=== PATIENT | female | born 1975 | race Caucasian/White ===

== ENCOUNTER 2020-11-03 08:53 | Outpatient (REF) | payer OTHER, SELFPAY ==
--- NOTE | ~2020-11-03 | MM_ITS ---
EXAMINATION: MM SCREENING DIGITAL BREAST TOMOSYNTHESIS, BILATERAL CLINICAL INFORMATION: Screening. Asymptomatic. The lifetime risk of breast cancer based on the Tyrer-Cuzick Model is 11%. COMPARISON: Mammography: 12/11/2018, 08/27/2016, 01/03/2015 TECHNIQUE: Digital breast tomosynthesis is performed in both the craniocaudal and mediolateral oblique views along with computer-aided detection (CAD). Synthesized 2D images are generated from the tomosynthesis. FINDINGS: There are scattered areas of fibroglandular density (ACR BI-RADS breast composition Category b). There are no significant masses, abnormal calcifications, or other abnormalities. Parenchymal pattern is similar to prior exams. No significant changes. MM/MM tomosynthesis screening BI IMPRESSION: No mammographic evidence of malignancy. ASSESSMENT: BI-RADS 1: Negative RECOMMENDATION: Routine annual mammography screening. This patient's information was entered into a reminder system with a target due date for their next mammogram.
== END 2020-11-03 08:54 | disposition home or self-care (01) ==
LOC: HO.MAMMO 08:53
PROVIDERS: PCP Internal Medicine; Visit Provider Internal Medicine
DX: Z12.31 Encounter for screening mammogram for malignant neoplasm of breast (principal)
CPT/HCPCS: 77063; 77067

== ENCOUNTER 2020-12-19 09:05 | Outpatient (REF) | payer OTHER, SELFPAY ==
--- NOTE | ~2020-12-19 | XR_ITS ---
EXAMINATION: BILATERAL KNEE X-RAY CLINICAL INFORMATION: Pain COMPARISON: None TECHNIQUE: 4 views of each knee FINDINGS: Right: Bone alignment is normal. No fracture or dislocation is seen. The joint spaces are normal. There is a small osteophyte at the quadriceps tendon insertion to the patella. There is a small joint effusion. Left: Bone alignment is normal. No fracture or dislocation is seen. Joint spaces are normal. There is no joint effusion. XR/XR knee RT 4V IMPRESSION: Right knee: Small osteophyte at the quadriceps tendon insertion to the patella and small joint effusion. Left knee: Unremarkable exam.
--- NOTE | ~2020-12-19 | XR_ITS ---
EXAMINATION: BILATERAL KNEE X-RAY CLINICAL INFORMATION: Pain COMPARISON: None TECHNIQUE: 4 views of each knee FINDINGS: Right: Bone alignment is normal. No fracture or dislocation is seen. The joint spaces are normal. There is a small osteophyte at the quadriceps tendon insertion to the patella. There is a small joint effusion. Left: Bone alignment is normal. No fracture or dislocation is seen. Joint spaces are normal. There is no joint effusion. XR/XR knee LT 4V IMPRESSION: Right knee: Small osteophyte at the quadriceps tendon insertion to the patella and small joint effusion. Left knee: Unremarkable exam.
== END 2020-12-19 09:06 | disposition home or self-care (01) ==
LOC: HO.XRAY 09:05
PROVIDERS: PCP Internal Medicine; Visit Provider Internal Medicine
DX: M25.561 Pain in right knee (principal); M25.562 Pain in left knee
CPT/HCPCS: 73564

== ENCOUNTER → 2021-03-15 08:50 | Outpatient (BNVA) | payer OTHER, SELFPAY | PROVIDERS: PCP Internal Medicine; Visit Provider Nurse Practitioner Family | DX: M79.7 Fibromyalgia (principal); M54.50 Low back pain, unspecified | CPT/HCPCS: 99212 ==

== ENCOUNTER 2021-03-16 08:10 | Outpatient (REF) | payer OTHER, SELFPAY ==
--- NOTE | ~2021-03-16 | XR_ITS ---
EXAMINATION: XR LUMBOSACRAL SPINE CLINICAL INFORMATION: Low back pain COMPARISON: None TECHNIQUE: Three views of the lumbosacral spine. FINDINGS: The vertebral bodies and posterior elements are normal. The disc spaces are preserved and the vertebral alignment is normal. The paraspinal soft tissues are normal. There are surgical clips in the right upper quadrant likely from previous cholecystectomy. XR/XR lumbar spine 2-3V IMPRESSION: Unremarkable examination.
[2021-03-16 09:04] LABS: Alanine Aminotransferase 28 U/L (0-31); Albumin Level 4.1 g/dL (3.5-5.0); Alkaline Phosphatase 45 U/L (39-117); Anion Gap 12 (12-20); Aspartate Amino Transferase 18 U/L (5-31); Bilirubin Total 0.3 mg/dL (0.0-1.0); Blood Urea Nitrogen 14 mg/dL (9-16); Calcium 10.1 mg/dL (8.4-10.2); Carbon Dioxide 27 mmol/L (22-29); Chloride 105 mmol/L (96-108); Estimated Glomerular Filt Rate > 60; Glucose Random 93 mg/dL (60-115); Potassium 4.8 mmol/L (3.3-5.1); Sodium 139 mmol/L (135-145)
== END 2021-03-16 08:11 | disposition home or self-care (01) ==
LOC: HO.XRAY 08:10
PROVIDERS: PCP Internal Medicine; Visit Provider Nurse Practitioner Family
DX: M79.7 Fibromyalgia (principal); M54.50 Low back pain, unspecified
CPT/HCPCS: 36415; 72100; 80053

== ENCOUNTER 2021-05-09 13:29 | Outpatient (REF) | payer OTHER, SELFPAY ==
[2021-05-12 18:17] LABS: HPV mRNA E6/E7 rflx Not Detected (Not Detected)
== END 2021-05-09 13:30 | disposition home or self-care (01) ==
LOC: HO.LAB 13:29
PROVIDERS: PCP Internal Medicine; Visit Provider Obstetrics & Gynecology
DX: Z01.411 Encounter for gynecological examination (general) (routine) with abnormal findings (principal); Z11.51 Encounter for screening for human papillomavirus (HPV); R32 Unspecified urinary incontinence
CPT/HCPCS: 87624; 88142

== ENCOUNTER → 2021-05-11 10:46 | Outpatient (BNVA) | payer OTHER, SELFPAY | PROVIDERS: PCP Internal Medicine; Visit Provider Physician Assistant | DX: M17.12 Unilateral primary osteoarthritis, left knee (principal); M25.561 Pain in right knee | CPT/HCPCS: 99202; J1040 ==

== ENCOUNTER → 2021-07-18 09:16 | Outpatient (BNVA) | payer OTHER, SELFPAY | PROVIDERS: PCP Internal Medicine | DX: R32 Unspecified urinary incontinence (principal) | CPT/HCPCS: 51798; 99202 ==

== ENCOUNTER 2021-07-21 08:36 | Outpatient (REF) | payer OTHER, SELFPAY ==
--- NOTE | ~2021-07-21 | MM_ITS ---
EXAMINATION: MM DIAGNOSTIC DIGITAL BREAST TOMOSYNTHESIS, LEFT US DIAGNOSTIC ULTRASOUND BREAST, LEFT CLINICAL INFORMATION: Left breast tenderness and pain for 2 weeks. No palpable mass or discharge. No pain today. TC score 10%. COMPARISON: Mammography: 11/03/2020, 12/11/2018, 08/27/2016 TECHNIQUE: Digital breast tomosynthesis is performed in both the craniocaudal and mediolateral oblique views along with computer-aided detection (CAD). Synthesized 2D images are generated from the tomosynthesis. Ultrasound left breast is targeted to the area of recent pain and tenderness upper outer breast. Grayscale imaging and color Doppler are performed without and with harmonics. FINDINGS: There are scattered areas of fibroglandular density (ACR BI-RADS breast composition Category b). There are no significant masses, abnormal calcifications, or other abnormalities. Parenchymal pattern is similar to prior studies. No developing density. No skin thickening or coarsening of the Monty's ligaments. No significant changes. Ultrasound demonstrates no cystic or solid mass, architectural abnormality, or focal duct ectasia. No skin thickening or edema tracking in soft tissue planes. Results are discussed with the patient at time of visit. MM/MM tomosynthesis diagnostic LT IMPRESSION: -No mammographic evidence of malignancy or inflammatory changes -Unremarkable left breast ultrasound. ASSESSMENT: BI-RADS 1: Negative RECOMMENDATION: 1. Patient should be managed based on the clinical impression. 2. Otherwise, routine annual screening mammography. This patient's information was entered into a reminder system with a target due date for their next mammogram.
== END 2021-07-21 08:37 | disposition home or self-care (01) ==
LOC: HO.MAMMO 08:36
PROVIDERS: Visit Provider Registered Nurse Community Health
DX: N64.4 Mastodynia (principal)
CPT/HCPCS: 76642; 77061; 77065

== ENCOUNTER → 2021-08-25 08:35 | Outpatient (BNVA) | payer OTHER, SELFPAY | PROVIDERS: PCP Internal Medicine | DX: R32 Unspecified urinary incontinence (principal) | CPT/HCPCS: Q3014 ==

== ENCOUNTER 2021-09-21 05:59 | Outpatient (REF) | payer OTHER, SELFPAY ==
--- NOTE | ~2021-09-21 | XR_ITS ---
EXAMINATION: XR KNEE AP STANDING CLINICAL INFORMATION: Pain in the right knee. COMPARISON: 12/19/2020. TECHNIQUE: AP bilateral standing view of the knees was obtained. FINDINGS: No evidence of acute fractures or malalignment in this limited single view. No significant joint space narrowing. No erosions or chondrocalcinosis. No significant soft tissue abnormality. XR/XR knee standing BI IMPRESSION: Normal limited single standing view of the knees.
== END 2021-09-21 06:00 | disposition home or self-care (01) ==
LOC: HO.HOSX 05:59
PROVIDERS: Visit Provider Physician Assistant
DX: M25.561 Pain in right knee (principal); M17.12 Unilateral primary osteoarthritis, left knee
CPT/HCPCS: 73565; 99212

== ENCOUNTER → 2021-10-18 10:51 | Outpatient (BNVA) | payer OTHER, SELFPAY | PROVIDERS: PCP Internal Medicine; Visit Provider Nurse Practitioner Family | DX: Z12.11 Encounter for screening for malignant neoplasm of colon (principal) | CPT/HCPCS: 99202 ==

== ENCOUNTER → 2021-11-08 14:09 | Outpatient (BNVA) | payer OTHER, SELFPAY | PROVIDERS: PCP Internal Medicine; Visit Provider Anesthesiology | DX: M54.16 Radiculopathy, lumbar region (principal); M46.1 Sacroiliitis, not elsewhere classified; G89.4 Chronic pain syndrome; M53.3 Sacrococcygeal disorders, not elsewhere classified | CPT/HCPCS: 99202 ==

== ENCOUNTER 2021-11-10 10:15 | Outpatient (REF) | payer OTHER, SELFPAY ==
--- NOTE | ~2021-11-10 | MM_ITS ---
EXAMINATION: MM SCREENING DIGITAL BREAST TOMOSYNTHESIS, BILATERAL CLINICAL INFORMATION: Screening. Asymptomatic. The lifetime risk of breast cancer based on the Tyrer-Cuzick Model is 11%. COMPARISON: Mammography: 07/21/2021, 11/03/2020, 12/11/2018 TECHNIQUE: Digital breast tomosynthesis is performed in both the craniocaudal and mediolateral oblique views along with computer-aided detection (CAD). Synthesized 2D images are generated from the tomosynthesis. FINDINGS: There are scattered areas of fibroglandular density (ACR BI-RADS breast composition Category b). There are no significant masses, abnormal calcifications, or other abnormalities. Parenchymal pattern is similar to prior studies. No developing density or interval architectural abnormality. The axilla are unremarkable. No significant changes. MM/MM tomosynthesis screening BI IMPRESSION: No mammographic evidence of malignancy. ASSESSMENT: BI-RADS 1: Negative RECOMMENDATION: Routine annual mammography screening. This patient's information was entered into a reminder system with a target due date for their next mammogram.
== END 2021-11-10 10:16 | disposition home or self-care (01) ==
LOC: HO.MAMMO 10:15
PROVIDERS: Visit Provider Internal Medicine
DX: Z12.31 Encounter for screening mammogram for malignant neoplasm of breast (principal)
CPT/HCPCS: 77063; 77067

== ENCOUNTER → 2022-03-08 09:22 | Outpatient (BNVA) | payer OTHER, SELFPAY | PROVIDERS: PCP Internal Medicine; Visit Provider Nurse Practitioner Family | DX: N39.41 Urge incontinence (principal); N32.81 Overactive bladder; N20.0 Calculus of kidney; Z87.891 Personal history of nicotine dependence; Z79.899 Other long term (current) drug therapy | CPT/HCPCS: 51798; 99212 ==

== ENCOUNTER 2022-10-30 10:54 | Outpatient (REF) | payer MEDICARE, MEDICAID, SELFPAY ==
--- NOTE | ~2022-10-30 | XR_ITS ---
EXAMINATION: XR CHEST CLINICAL INFORMATION: Cough/bronchitis for 2 weeks COMPARISON: 11/26/2017 TECHNIQUE: 2 views of the chest were obtained. FINDINGS: No significant abnormality is noted involving the heart, lungs, mediastinum, bony thorax or soft tissues. XR/XR chest 2V IMPRESSION: No acute cardiopulmonary disease or interval change.
[2022-10-30 13:35] LABS: MANUAL DIFF FLAG NO
[2022-10-30 13:56] LABS: Basophils Percent Auto 0.4 % (0-2); Eosinophils Absolute Auto 0.2 X10*3/uL (0.0-0.4); Eosinophils Percent Auto 3.1 % (0-4); Hemoglobin 13.5 g/dl (12.0-16.0); Imm Gran Abs Auto 0.04 X10*3/uL (0.00-0.03); Imm Gran Pct Auto 0.5 % (0.0-0.4); Lymphocytes Absolute Auto 2.3 X10*3/uL (1.2-4.9); Lymphocytes Percent Auto 28.9 % (20-40); Mean Corpuscular HGB Conc 32.1 g/dl (31.0-35.0); Mean Corpuscular Hemoglobin 30.5 pg (27.0-33.0); Mean Corpuscular Volume 94.8 fL (80.0-98.0); Mean Platelet Volume 11.3 fL (9.4-12.3); Monocytes Absolute Auto 0.5 X10*3/uL (0.1-1.2); Monocytes Percent Auto 5.8 % (2-11); Neutrophils Absolute Auto 4.8 x10*3/uL (2.0-8.3); Neutrophils Percent Auto 61.3 % (45-73); Platelet Count 268 X10*3/uL (160-400); Red Blood Count 4.43 X10*6/uL (4.20-5.50); Red Cell Distribution Width 14.3 % (11.0-16.0); White Blood Count 7.8 X10*3/uL (4.8-10.8)
[2022-10-30 14:03] LABS: Alanine Aminotransferase 28 U/L (0-31); Albumin Level 4.4 g/dL (3.5-5.0); Alkaline Phosphatase 48 U/L (39-117); Anion Gap 12 (12-20); Aspartate Amino Transferase 19 U/L (5-31); Bilirubin Direct 0.2 mg/dL (0.0-0.5); Bilirubin Total 0.4 mg/dL (0.0-1.0); Blood Urea Nitrogen 10 mg/dL (9-16); Calcium 10.1 mg/dL (8.4-10.2); Carbon Dioxide 28 mmol/L (22-29); Chloride 104 mmol/L (96-108); Cholesterol 229 mg/dL (<200); Estimated Glomerular Filt Rate > 60; Glucose Random 86 mg/dL (60-115); HDL Cholesterol 54 mg/dL (>40); LDL Cholesterol Calculated 145 mg/dL (<100); Potassium 4.3 mmol/L (3.3-5.1); Sodium 140 mmol/L (135-145); Total Protein 7.8 g/dL (6.5-8.0); Triglycerides 153 mg/dL (<150)
[2022-10-30 14:35] LABS: Folate 12.3 ng/mL (> or = 4.0); Vitamin B12 624 pg/mL (200-900)
[2022-11-03 16:23] LABS: Methylmalonic Acid 132 nmol/L (87-318)
== END 2022-10-30 10:55 | disposition home or self-care (01) ==
LOC: HO.HHCL 10:54
PROVIDERS: Visit Provider Internal Medicine
DX: Z00.00 Encounter for general adult medical examination without abnormal findings (principal); Z20.2 Contact with and (suspected) exposure to infections with a predominantly sexual mode of transmission; R20.0 Anesthesia of skin; R20.2 Paresthesia of skin; I10 Essential (primary) hypertension; R31.29 Other microscopic hematuria
CPT/HCPCS: 36415; 71046; 80048; 80061; 80076; 82607; 82746; 83090; 83921; 85025

== ENCOUNTER 2023-05-20 08:26 | Outpatient (AMB) | payer OTHER, SELFPAY ==
--- NOTE | 2023-05-20 08:29 | A.OFFVIS_ITS ---
Intake Vital Signs 05/20/23 08:35 Height 5 ft 8 in Weight 194 lb 0.108 oz BMI 29.5 BP 129/75 Blood Pressure Location Lt brachial Pulse 78 Pulse Source Pulse Oximeter Pulse Oximetry (%) 99 Oxygen Delivery Method Room Air Intake Visit Reasons: heartburn and diarrhea unspecified Intake Note: pt here for heartburn, nausea and diarrhea started 4-5 months ago, no vomiting, pt tried over the counter medication to reduce the symptoms but no working. 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 Denies any issues with anesthesia in the past.? Denies any history of sleep apnea.? No history infectious diseases in the past or present.? Not on any anticoagulation therapy.? No family or personal history of colon cancer or polyps.? Patient denies melena, hematochezia, unintentional weight loss or ribbon like stools.? Discussed at length the pre-procedure,? prep, diet & medications as well as what to expect prior, during and after the procedure.?? Stressed the importance of good bowel prep. ?Recommended the use of Vaseline or Calmoseptine OTC & baby wipes with bowel movements to promote comfort.? ?Patient verbalizes understanding and agrees to plan of care.? She was given the opportunity to ask questions and all questions answered.? We will see her after the procedure.? Plan Medications New bisacodyl (Dulcolax (bisacodyl)) take 2 tabs at noon the day before your colonoscopy 10 mg (2 x 5 mg) PO ONCE 1 day 2 tabs 0RF Z12.11 polyethylene glycol 3350 (Miralax) As directed by gastroenterology department at [facility] 238 grams PO ONCE 238 grams 0RF Z12.11 TODAY'S VISIT Patient is here today for requested visit. Patient never went for colonoscopy as she got afraid and canceled the procedure. In the last 5 months or so patient has been dealing with epigastric discomfort postprandially. Patient reports that this does not happen with every meal only with certain food. Patient also reports 2-3 bowel movements a day usually loose. Patient feels like she empties her bowels. Tried Imodium, however it does not feel like it is helping. Patient reports that she does not experience abdominal pain. Occasional postprandial abdominal bloating depending on what she eats. Patient has not notice which food is making her to feel like that. Patient denies any nausea or vomiting. However occasionally feels nauseous in the morning patient denies dyspepsia, dysphagia or odynophagia. Denies melena, hematochezia, unintentional weight loss or ribbon like stools. 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 Female Reproductive History Menstrual Age of Menarche: 9 Review of Systems Const Denies weight gain and Denies weight loss ENT Reports no additional complaints, Denies dysphagia and Denies odynophagia Card Reports no additional complaints Resp Reports no additional complaints GI Denies abdominal pain, Denies belching, Denies melena, Denies bloating, Denies change in bowel habits, Denies dysphagia, Denies excessive flatus, Denies dyspepsia, Reports heartburn, Denies diarrhea, Reports loose stools, Denies nausea, Denies odynophagia and Denies vomiting Reports no additional complaints Musc Reports no additional complaints Neuro Reports no additional complaints Psych Reports no additional complaints Endo Reports no additional complaints Physical Exam Vital Signs: Last Vital Signs Pulse 78 05/20/23 08:35 BP 129/75 05/20/23 08:35 Pulse Ox 99 05/20/23 08:35 Oxygen Delivery Method Room Air 05/20/23 08:35 BMI result Body Mass Index 29.5 Const General: healthy appearing and no acute distress Nutritional Appearance: obese Orientation/consciousness: patient oriented x3 Resp Effort & Inspection: normal respiratory effort, able to speak in complete sentences, no tracheal deviation and symmetric chest movement Auscultation: clear to auscultation bilaterally Cardio Rate: regular rate GI Inspection: Yes normal to inspection, No distended and Yes obesity Palpation (GI): Soft to palpation, not firm, nontender and No hepatosplenomegaly present Auscultation: normal bowel sounds General: Yes no CVA tenderness Back/Spine/Pelvis Back: no CVA tenderness Skin General skin exam: elasticity normal, turgor normal and dry skin Neuro General: patient oriented x3 Psych Appearance: grossly normal Mental Status: mental status grossly normal Assessment & Plan Assessment & Plan (1) GERD (gastroesophageal reflux disease): Code(s): K21.9 - Gastro-esophageal reflux disease without esophagitis Qualifiers: Esophagitis presence: esophagitis presence not specified Qualified Code(s): K21.9 - Gastro-esophageal reflux disease without esophagitis (2) Postprandial diarrhea: Code(s): K52.9 - Noninfective gastroenteritis and colitis, unspecified (3) Postprandial abdominal bloating: Code(s): R14.0 - Abdominal distension (gaseous) Plan Patient will start taking omeprazole every morning half an hour before breakfast. Will start her on fiber therapy and add laxative to help her move her bowels completely. Will rule out malabsorption, inflammatory processes. Occasional epigastric pain in right and left upper quadrant will check liver profile and lipase. Discussed with patient avoiding dietary triggers and late night snacking. Staying upright for minimal 3 hours after meals discussed with patient. Low FODMAP diet discussed with patient. List of food recommended as well as list of food to avoid given to patient. Patient will return in 6 weeks, sooner on as needed basis. Patient is agreeable to this plan and verbalizes understanding of instructions. She was given the opportunity to ask questions and all questions answered. Thank you for allowing me to participate in care Orders: Orders C Reactive Protein Today K58.9 - Irritable bowel syndrome without diarrhea TSH reflex Free T4 Today K59.00 - Constipation, unspecified Vitamin B12 and Folate Today R19.7 - Diarrhea, unspecified Lipase Today R10.9 - Unspecified abdominal pain Vitamin D 25-OH (D2 and D3) Today E55.9 - Vitamin D deficiency, unspecified Liver Panel Today R74.01 - Elevation of levels of liver transaminase levels Medications: New omeprazole 20 mg PO DAILY 30 caps 3RF K21.9 - Gastro-esophageal reflux disease without esophagitis methylcellulose (laxative) (Citrucel) take it with full glass of water 500 mg PO DAILY 30 tabs 2RF K59.00 - Constipation, unspecified sennosides (Natural Senna Laxative) 17.2 mg (2 x 8.6 mg) PO BEDTIME 60 tabs 1RF constipation K59.00 - Constipation, unspecified Discontinued polyethylene glycol 3350 (Miralax) As directed by gastroenterology department at [facility] Discontinued Reason: Patient no longer taking 238 grams PO ONCE 238 grams 0RF Z12.11 - Encounter for screening for malignant neoplasm of colon bisacodyl (Dulcolax (bisacodyl)) take 2 tabs at noon the day before your colonoscopy Discontinued Reason: Doctor's Order 10 mg (2 x 5 mg) PO ONCE 1 day 2 tabs 0RF Z12.11 - Encounter for screening for malignant neoplasm of colon Coding Level of Care Code Est Pt Level 4 (87824) Diagnoses Gastroesophageal reflux disease, unspecified whether esophagitis present K21.9 Esophagitis presence: esophagitis presence not specified Postprandial diarrhea K52.9 Postprandial abdominal bloating R14.0 Time Spent (min) 40 Comment 25 minutes spent with patient and additional 15 minutes spent reviewing her records
[2023-05-20 08:35] VITALS: BP 129/75; PULSE 78; O2SAT 99; BMI 29.5
== END 2023-05-20 08:56 | disposition home or self-care (01) ==
PROVIDERS: PCP Internal Medicine; Visit Provider Nurse Practitioner Family
DX: K21.9 Gastro-esophageal reflux disease without esophagitis (principal); K52.9 Noninfective gastroenteritis and colitis, unspecified; R14.0 Abdominal distension (gaseous)
CPT/HCPCS: 99214

== ENCOUNTER 2023-05-20 08:26 | Outpatient (REF) | payer OTHER, SELFPAY ==
[2023-05-20 10:29] LABS: Alanine Aminotransferase 43 U/L (0-31); Albumin Level 4.5 g/dL (3.5-5.0); Alkaline Phosphatase 43 U/L (39-117); Aspartate Amino Transferase 27 U/L (5-31); Bilirubin Direct 0.1 mg/dL (0.0-0.5); Bilirubin Total 0.3 mg/dL (0.0-1.0); C Reactive Protein 0.35 mg/dL (< or = 0.50); Lipase 22 U/L (8-78); Total Protein 7.8 g/dL (6.5-8.0)
[2023-05-20 10:45] LABS: TSH reflex Free T4 0.78 uIU/mL (0.32-4.0)
[2023-05-20 10:55] LABS: Vitamin B12 480 pg/mL (200-900)
[2023-05-23 12:24] LABS: Vitamin D 25-OH, D2 <4 ng/mL; Vitamin D 25-OH, D3 9 ng/mL; Vitamin D 25-OH, Total 9 ng/mL (30-100)
== END 2023-05-20 08:27 | disposition home or self-care (01) ==
LOC: HO.LAB 08:26
PROVIDERS: PCP Internal Medicine; Visit Provider Nurse Practitioner Family
DX: K58.9 Irritable bowel syndrome, unspecified (principal); K59.00 Constipation, unspecified; R10.9 Unspecified abdominal pain; E55.9 Vitamin D deficiency, unspecified; R74.01 Elevation of levels of liver transaminase levels; R19.7 Diarrhea, unspecified
CPT/HCPCS: 36415; 80076; 82306; 82607; 82746; 83690; 84443; 86140

== ENCOUNTER 2023-05-22 09:29 | Outpatient (REF) | payer MEDICARE, SELFPAY | END 2023-05-22 09:30 | disposition home or self-care (01) | LOC: HO.HOSX 09:29 | PROVIDERS: Visit Provider Orthopaedic Surgery | DX: Z13.89 Encounter for screening for other disorder (principal) ==

== ENCOUNTER 2023-07-16 08:59 | Outpatient (AMB) | payer OTHER, SELFPAY ==
--- NOTE | 2023-07-16 09:05 | MHC.OFFVIS ---
Vital Signs 07/16/23 09:09 Height 5 ft 8 in Weight 196 lb 3.382 oz BMI 29.8 BP 146/81 H Blood Pressure Location Lt brachial Position Sitting Pulse 75 Intake Visit Reasons: 6 week follow up Intake Note: jyothi presents in the office as a 6 week follow up. CC: Medications are working and she states that she is feeling much better! Allergies No Known Allergies [No Known Allergies*] Allergy (Verified 05/20/23 08:32) HPI HPI 6 week follow up: Details: LAST VISIT: GERD (gastroesophageal reflux disease) Postprandial diarrhea Postprandial abdominal bloating Plan Patient will start taking omeprazole every morning half an hour before breakfast. Will start her on fiber therapy and add laxative to help her move her bowels completely. Will rule out malabsorption, inflammatory processes. Occasional epigastric pain in right and left upper quadrant will check liver profile and lipase. Discussed with patient avoiding dietary triggers and late night snacking. Staying upright for minimal 3 hours after meals discussed with patient. Low FODMAP diet discussed with patient. List of food recommended as well as list of food to avoid given to patient. Patient will return in 6 weeks, sooner on as needed basis. Patient is agreeable to this plan and verbalizes understanding of instructions. She was given the opportunity to ask questions and all questions answered. ? Thank you for allowing me to participate in care Orders Orders C Reactive Protein Today K58.9 TSH reflex Free T4 Today K59.00 Vitamin B12 and Folate Today R19.7 Lipase Today R10.9 Vitamin D 25-OH (D2 and D3) Today E55.9 Liver Panel Today R74.01 Medications New omeprazole 20 mg PO DAILY 30 caps 3RF K21.9 methylcellulose (laxative) (Citrucel) take it with full glass of water 500 mg PO DAILY 30 tabs 2RF K59.00 sennosides (Natural Senna Laxative) 17.2 mg (2 x 8.6 mg) PO BEDTIME 60 tabs 1RF constipation K59.00 Discontinued polyethylene glycol 3350 (Miralax) As directed by gastroenterology department at [facility] Discontinued Reason: Patient no longer taking 238 grams PO ONCE 238 grams 0RF Z12.11 bisacodyl (Dulcolax (bisacodyl)) take 2 tabs at noon the day before your colonoscopy Discontinued Reason: Doctor's Order 10 mg (2 x 5 mg) PO ONCE 1 day 2 tabs 0RF Z12.11 TODAY'S VISIT Patient is here today for follow-up and to discuss lab results. Patient reports that she has been feeling well since the last time I have seen her. Patient states that she takes omeprazole in the morning and famotidine at bedtime and her symptoms of acid reflux are suppressed. Patient also reports that she is moving her bowels better now. Patient states that she no longer has diarrhea. Patient is taking Citrucel in the morning and senna at night time and she has no issues. Less abdominal bloating. Denies dyspepsia, dysphagia or odynophagia. Denies melena, hematochezia, unintentional weight loss or ribbon like stools. Patient is due to go for colonoscopy. We will also send her for upper endoscopy. Patient denies any issues with anesthesia in the past. No history of sleep apnea. Not on any anticoagulation medication. Patient denies any respiratory or cardiac symptoms. 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 Female Reproductive History Menstrual Age of Menarche: 9 Review of Systems Const Denies weight gain and Denies weight loss ENT Reports no additional complaints, Denies dysphagia and Denies odynophagia Card Reports no additional complaints Resp Reports no additional complaints GI Denies abdominal pain, Denies belching, Denies melena, Denies bloating, Denies change in bowel habits, Denies dysphagia, Denies excessive flatus, Denies dyspepsia, Denies heartburn, Denies diarrhea, Denies loose stools, Denies nausea, Denies odynophagia and Denies vomiting Musc Reports no additional complaints Neuro Reports no additional complaints Psych Reports no additional complaints Endo Reports no additional complaints Physical Exam Vital Signs: Last Vital Signs Pulse 75 07/16/23 09:09 BP 146/81 H 07/16/23 09:09 BMI result Body Mass Index 29.8 Const General: healthy appearing and no acute distress Nutritional Appearance: obese Orientation/consciousness: patient oriented x3 Resp Effort & Inspection: normal respiratory effort, able to speak in complete sentences, no tracheal deviation and symmetric chest movement Auscultation: clear to auscultation bilaterally Cardio Rate: regular rate GI Inspection: Yes normal to inspection, No distended and Yes obesity Palpation (GI): Soft to palpation, not firm, nontender and No hepatosplenomegaly present Auscultation: normal bowel sounds General: Yes no CVA tenderness Back/Spine/Pelvis Back: no CVA tenderness Skin General skin exam: elasticity normal, turgor normal and dry skin Neuro General: patient oriented x3 Psych Appearance: grossly normal Mental Status: mental status grossly normal Results Reviewed Results Reviewed: Laboratory Tests 05/20/23 09:10 Total Bilirubin 0.3 Direct Bilirubin 0.1 AST 27 ALT 43 H Alkaline Phosphatase 43 C-Reactive Protein 0.35 Lipase 22 Vitamin B12 480 25-OH Vitamin D Total 9 L Folate 9.0 TSH 0.78 Assessment & Plan Assessment & Plan (1) GERD (gastroesophageal reflux disease): Code(s): K21.9 - Gastro-esophageal reflux disease without esophagitis Qualifiers: Esophagitis presence: esophagitis presence not specified Qualified Code(s): K21.9 - Gastro-esophageal reflux disease without esophagitis (2) Postprandial diarrhea: Code(s): K52.9 - Noninfective gastroenteritis and colitis, unspecified (3) Postprandial abdominal bloating: Code(s): R14.0 - Abdominal distension (gaseous) Plan Patient will continue omeprazole and famotidine. Will be sent for upper endoscopy to rule out gastritis, esophagitis, gastric or peptic ulcers, Owens's, H pylori. Stressed the importance of good bowel prep and clear liquid diet day before procedure. What to expect before during and after procedure discussed with patient. Patient denies any cardiac or respiratory symptoms. Denies any issues with anesthesia in the past. No history of sleep apnea. Not on any anticoagulation medication. I will see her after the procedure, sooner on as needed basis. She is agreeable to this plan and verbalizes understanding of instructions. She was given the opportunity to ask questions and all questions answered. Thank you for allowing me to participate in her care Medications: New polyethylene glycol 3350 (Miralax) As directed by gastroenterology department at [facility] 238 grams PO ONCE 238 grams 0RF Z12.11 - Encounter for screening for malignant neoplasm of colon famotidine 20 mg PO BEDTIME 30 tabs 3RF bisacodyl (Dulcolax (bisacodyl)) take 4 tabs at noon the day before your colonoscopy 20 mg (4 x 5 mg) PO ONCE 1 day 4 tabs 0RF Z12.11 - Encounter for screening for malignant neoplasm of colon Refilled sennosides (Natural Senna Laxative) 17.2 mg (2 x 8.6 mg) PO BEDTIME 180 tabs 2RF constipation K59.00 - Constipation, unspecified omeprazole 20 mg PO DAILY 90 caps 3RF K21.9 - Gastro-esophageal reflux disease without esophagitis Coding Level of Care Code Est Pt Level 3 (40401) Diagnoses Gastroesophageal reflux disease, unspecified whether esophagitis present K21.9 Esophagitis presence: esophagitis presence not specified Postprandial diarrhea K52.9 Postprandial abdominal bloating R14.0 Time Spent (min) 30 Comment 20 minutes spent with patient and additional 10 minutes spent reviewing her records
[2023-07-16 09:09] VITALS: BP 146/81; PULSE 75; BMI 29.8
== END 2023-07-16 09:31 | disposition home or self-care (01) ==
PROVIDERS: PCP Internal Medicine; Visit Provider Nurse Practitioner Family
DX: K21.9 Gastro-esophageal reflux disease without esophagitis (principal); K52.9 Noninfective gastroenteritis and colitis, unspecified; R14.0 Abdominal distension (gaseous)
CPT/HCPCS: 99213

== ENCOUNTER → 2023-07-16 08:59 | Outpatient (BNVA) | payer OTHER, SELFPAY | PROVIDERS: PCP Internal Medicine; Visit Provider Nurse Practitioner Family ==

== ENCOUNTER 2023-12-03 11:26 | Outpatient (REF) | payer OTHER, SELFPAY ==
--- NOTE | ~2023-12-03 | MM_ITS ---
EXAMINATION: MM SCREENING DIGITAL BREAST TOMOSYNTHESIS, BILATERAL CLINICAL INFORMATION: Screening. Asymptomatic. COMPARISON: Mammography: Comparison is made with available priors TECHNIQUE: Digital breast mammography with tomosynthesis is performed in both the craniocaudal and mediolateral oblique views along with computer-aided detection (CAD). FINDINGS: There are scattered areas of fibroglandular density (ACR BI-RADS breast composition Category b). There are no significant masses, abnormal calcifications, or other abnormalities. MM/MM tomosynthesis screening BI IMPRESSION: No mammographic evidence of malignancy. ASSESSMENT: BI-RADS BI-RADS 1 - Negative RECOMMENDATION: Routine annual mammography screening. 1 year F/U This examination should not preclude the clinical evaluation of a suspicious palpable abnormality. This patient's information was entered into a reminder system with a target due date for their next mammogram. Electronically signed by: Yaa Benton DO 12/16/2023 05:22 PM EDT
== END 2023-12-03 11:27 | disposition home or self-care (01) ==
LOC: HO.MAMMO 11:26
PROVIDERS: PCP Internal Medicine; Visit Provider Internal Medicine
DX: Z12.31 Encounter for screening mammogram for malignant neoplasm of breast (principal)
CPT/HCPCS: 77063; 77067

== ENCOUNTER → 2023-12-03 11:45 | Outpatient (BNV) | payer OTHER, SELFPAY | PROVIDERS: PCP Internal Medicine; Visit Provider Internal Medicine | DX: Z12.31 Encounter for screening mammogram for malignant neoplasm of breast (principal) | CPT/HCPCS: 77063; 77067 ==

== ENCOUNTER 2024-04-08 09:47 | Outpatient (AMB) | payer OTHER, SELFPAY ==
--- NOTE | 2024-04-08 09:48 | A.OFFVIS_ITS ---
Vital Signs 04/08/24 09:49 Height 5 ft 8 in Weight 185 lb 2 oz BMI 28.1 Intake Visit Reasons: cyst of the back Intake Note: This patient presents for cyst of the back. Pt c/o; cyst x2, back and above right buttock, completed course of antibiotics. Wool Fleece Grader Required: No Accompanied by: Self / Same As Patient Allergies No Known Allergies [No Known Allergies*] Allergy (Verified 04/08/24 09:56) Medication List - Last Reconciled 04/08/24 by Alex Bunn MD albuterol sulfate 90 mcg/actuation 2 puffs inhalation Q6H PRN amlodipine 5 mg PO DAILY bisacodyl (Dulcolax (bisacodyl)) 20 mg (4 x 5 mg) PO ONCE 1 day cholecalciferol (vitamin D3) 1,250 mcg PO QWEEK citalopram (Celexa) 20 mg PO DAILY clotrimazole 1% 1 appl topical QAM AND QHS cyclobenzaprine 10 mg PO TID diclofenac sodium 1% (Voltaren Arthritis Pain) 2 grams topical QID duloxetine 60 mg PO BID famotidine 20 mg PO BEDTIME fluticasone propionate 44 mcg/actuation (Flovent HFA) 2 puffs inhalation BID gabapentin 300 mg PO BEDTIME hydrochlorothiazide 12.5 mg PO DAILY hydroxyzine HCl 50 mg PO QID PRN ibuprofen 800 mg PO Q8H PRN methylcellulose (laxative) (Citrucel) 500 mg PO DAILY omeprazole 20 mg PO DAILY paroxetine HCl 10 mg PO DAILY polyethylene glycol 3350 (Miralax) 238 grams PO ONCE sennosides (Natural Senna Laxative) 17.2 mg (2 x 8.6 mg) PO BEDTIME HPI HPI cyst of the back: Details: [age] year old female referred for cysts on her back. She says she has had these lumps for ?a couple of years?. She says that recently, he went to the ER to have 1 of the cysts on her lower back drained. She therefore wants these removed. She describes occasional swelling and pain. 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 Female Reproductive History Menstrual Age of Menarche: 9 Review of Systems Const Denies chills and Denies fever(s) Card Denies chest pain, Denies dyspnea and Denies dyspnea on exertion Resp Denies cough, Denies dyspnea and Denies dyspnea on exertion GI Denies hematochezia and Denies change in bowel habits Denies hematuria Musc Denies back pain and Denies limited range of motion Neuro Denies focal weakness and Denies convulsions Psych Denies depression and Denies mood swings Physical Exam Vital Signs: BMI result Body Mass Index 28.1 Const General: comfortable and no acute distress Orientation/consciousness: patient oriented x3 Neck Neck: Yes no lymphadenopathy Resp Auscultation: clear to auscultation bilaterally Cardio Rhythm: regular rhythm GI Palpation (GI): Soft to palpation, nontender and no guarding Back/Spine/Pelvis Other: Epidermal cyst on the mid back, about 1 cm in diameter Epidermal cyst on the lower back near the buttock, also about 1 cm in diameter Neuro General: patient oriented x3 Assessment & Plan Assessment & Plan (1) Epidermal cyst: Code(s): L72.0 - Epidermal cyst Category: Medical Plan: She has 2 epidermal cysts on the back as described above. She wants both of these excised. I explained the technique of excision under local anesthesia. I reviewed the risks, benefits, and alternatives. She understands and wants to proceed She will be scheduled for excision in the office under local anesthesia on her next visit Coding Level of Care Code New Pt Level 3 (00570) Diagnoses Epidermal cyst L72.0
[2024-04-08 09:49] VITALS: BMI 28.1
--- OUTSIDE RECORDS SUMMARY | 2024-04-08 10:10 | XMS_ITS | Encounter Summary ---
Author Organization [employer] [facility] Address [address] [place] [address] 7 [place] [address] Care Team Providers Care Fire Prevention Engineer Name Role Phone Marline Lincoln MD Primary Care Provide r Reason for Visit * Reason Comments Med Refill Encounter Details Date Type Department Care Team (Late st Contact Info) Description 10/17/2022 Refill [facility] MEDICINE [address] [place] [address] [facility] [address] [place] [address] Social History Tobacco Use Types Packs/Day Years Used Date Smoking Tobacco: Never Assessed Comments Unknown Sex and Gender Information Value Date Recorded Sex Assigned at Female 12/18/2021 10:17 AM EDT Legal Sex Female 10:17 AM EDT Gender Identity Female 12/18/2021 10:17 AM EDT Sexual Orientation Straight 12/18/2021 10 :17 AM EDT documented as of this encounter Plan of Treatment Upcoming Encounters Date Type Department Care Team (Late st Contact Info) Description 07/06/2024 9:30 AM EDT Office Visit [facility] OPTOMETRY [address] [place] [address] Ezequiel, Lynn, OD [address] [place] [address] documented as of this encounter Visit Diagnoses Not on filedocumented in this encounter Care Teams Fire Prevention Engineer Relationship Specialty Start Date End Date Marline Lincoln MD [address] [place] [address] PCP - General Family Medicine 10/21/18 documented as of this encounter
--- OUTSIDE RECORDS SUMMARY | 2024-04-08 10:10 | XMS_ITS | Encounter Summary ---
Author Organization [employer] Address [address] [place] [address] 7 [place] [address] Care Team Providers Care Pot Operator Name Role Phone Marline Lincoln MD Primary Care Provide r Reason for Visit * Reason Comments Med Refill Encounter Details Date Type Department Care Team ([facility] Contact Info) Description 11/21/2022 Refill [facility] MEDICINE [address] [place] [address] Marline Lincoln MD [address] [place] [address] Essential hypertension Social History Tobacco Use Types Packs/Day Years Used Date Smoking Tobacco: Never Passive Smoke Exposure: Never Smokeless Tobacco: Never Comments Unknown Sex and Gender Information Value Date Recorded Sex Assigned at Female 12/18/2021 10:17 AM EDT Legal Sex Female 10:17 AM EDT Gender Identity Female 12/18/2021 10:17 AM EDT Sexual Orientation Straight 12/18/2021 10 :17 AM EDT documented as of this encounter Plan of Treatment Upcoming Encounters Date Type Department Care Team (Late Contact Info) Description 07/06/2024 9:30 AM EDT Office Visit [facility] OPTOMETRY [address] [place] [address] Lynn Nieves OD [address] [place] [address] documented as of this encounter Visit Diagnoses Diagnosis Essential hypertension Unspecified essential hypertension documented in this encounter Care Teams Pot Operator Relationship Specialty Start Date End Date Marline Lincoln MD [address] [place] [address] PCP - General Family Medicine 10/21/18 documented as of this encounter
--- OUTSIDE RECORDS SUMMARY | 2024-04-08 10:10 | XMS_ITS | Encounter Summary ---
Author Organization [employer] Address [address] [place] [address] 7 [place] [address] Care Team Providers Care Stock Patch Sawyer Name Role Phone Marline Lincoln MD Primary Care Provide r Encounter Details Date Type Department Care Team (Late st Contact Info) Description 03/09/2022 Orders Only [facility] MEDICINE [address] [place] [address] Debby Thornton MD [address] [place] [address] Chronic pain of both knees (Primary Dx) Social History Tobacco Use Types Packs/Day Years [...] Description 07/06/2024 9:30 AM EDT Office Visit [facility] OPTOMETRY [address] [place] [address] Ezequiel, Lynn, OD [address] [place] [address] documented as of this encounter Visit Diagnoses Diagnosis Chronic pain of both knees- Primary documented in this encounter Care Teams Stock Patch Sawyer Relationship Specialty Start Date End Date Marline Lincoln MD [address] [place] [address] PCP - General Family Medicine 10/21/18 documented as of this encounter
--- OUTSIDE RECORDS SUMMARY | 2024-04-08 10:10 | XMS_ITS | Encounter Summary ---
Author Organization [employer] Address [address] [facility] 7t [place] [address] Care Team Providers Care Management Professor Name Role Phone Marline Lincoln MD Primary Care Provide r Reason for Visit * Reason Onset Date Comments r/s appt 11/05/2022 Encounter Details Date Type Department Care Team ([facility] Contact Info) Description 11/05/2022 Telephone [facility] MEDICINE [address] [place] [address] Marline Lincoln MD [address] [place] [address] r/s appt Social History Tobacco Use Types Packs/Day Years Used Date Smoking Tobacco: Never Passive Smoke Exposure: Never Smokeless Tobacco: Never Comments Unknown Sex and Gender Information Value Date Recorded Sex Assigned at Female 12/18/2021 10:17 AM EDT Legal Sex Female 10:17 AM EDT Gender Identity Female 12/18/2021 10:17 AM EDT Sexual Orientation Straight 12/18/2021 10 :17 AM EDT documented as of this encounter Miscellaneous Notes * Telephone Encounter - Susy Lackey - 11/05/2022 2:41 PM EDT Tc from pt requesting a call back to RE/S appt from 11/09 ( Follow up for 2 weeks with nurse for BPcheck) pt want tele appt. PCP Dr. Watkins documented in this encounter Plan of Treatment Upcoming Encounters Date Type Department Care Team (Late Contact Info) Description 07/06/2024 9:30 AM EDT Office Visit [facility] OPTOMETRY [address] [place] [address] Lynn Nieves, OD [address] [place] [address] documented as of this encounter Visit Diagnoses Not on filedocumented in this encounter Care Teams Management Professor Relationship Specialty Start Date End Date Marline Lincoln MD [address] [place] [address] PCP - General Family Medicine 10/21/18 documented as of this encounter
--- OUTSIDE RECORDS SUMMARY | 2024-04-08 10:10 | XMS_ITS | Encounter Summary ---
Author Organization [employer] Address [address] [facility] 7t [place] [address] Care Team Providers Care Legislative Correspondent Name Role Phone Marline Lincoln MD Primary Care Provide r Encounter Details Date Type Department Care Team (Late st Contact Info) Description 10/12/2022 Orders Only [facility]S [address] [place] [address] Marquita Reed LPN Social History Tobacco Use Types Packs/Day Years [...] 9:30 AM EDT Office Visit [facility] OPTOMETRY [address] [place] [address] Ezequiel, Lynn, OD [address] [place] [address] documented as of this encounter Procedures Procedure Name Priority Date/Time Associated Diagnosis Comments VITAMIN D 25-OH (D2 AND D3) Routine 05/20/2023 9:10 AM EDT VITAMIN B12/FOLATE, SERUM PANEL Routine 05/20/2023 9:10 AM EDT TSH W/REFLEX TO FT4 Routine 05/20/2023 9 :10 AM EDT C-REACTIVE PROTEIN Routine 05/20/2023 9: 10 AM EDT LIPASE Routine 05/20/2023 9:10 AM EDT HEPATIC FUNCTION PANEL Routine 05/20/2023 9:10 AM EDT documented in this encounter Results * (ABNORMAL) VITAMIN D 25-OH (D2 AND D3) (05/20/2023 9:10 AM EDT) Vitamin D, 25-OH, D2 <4 ng/mL [facility] Comment:This test was develo ped and its analytical performancecharacteristics have been determined by [employer] [place], [place]. It hasnot been cleared or approved by the U.S. Food and DrugAdministration. This assay has been validated pursuantto the CLIA regulations and is used for clinicalpurposes.THIS TEST WAS PERFORMED AT:[id number] [place] [address]ZMYWUXT W. MASON,MD,PHD Vitamin D, 25-OH, D3 9 ng/mL [facility] Comment:This test was develo ped and its analytical performancecharacteristics have been determined by [employer] [place], [place]. It hasnot been cleared or approved by the U.S. Food and DrugAdministration. This assay has been validated pursuantto the CLIA regulations and is used for clinicalpurposes. Vitamin D, 25-OH, Total 9(A) 30 - 100 ng/mL [facility] Comment:Vitamin D, 25-Hydrox y reports concentrations of twocommon forms, 25-OHD2 and 25-OHD3. 25-OHD3 indicatesboth endogenous production and supplementation.25-OHD2 is an indicator of exogenous sources such asdiet or supplementation. Therapy is based onmeasurement of Total 25-OHD, with levels <20 ng/mLindicative of Vitamin D deficiency, while levelsbetween 20 ng/mL and 30 ng/mL suggest insufficiency.Optimal levels are > or = 30 ng/mL.For additional information, please refer tohttp://education.[employer]/faq/JIH332(This link is being provided for informational/educational purposes only.) 05/20/2023 9:10 AM EDT 05/20/2023 9:10 AM EDT Generic External Data Provider LAB BLOOD ORDERAB LES Final Result Performing Organization Address [facility] de Phone Number [facility] [address] [place] [phone] * Vitamin B12/Folate, Serum Panel (05/20/2023 9:10 AM EDT) Vitamin B12 480 200 - 900 pg/mL [facility] Comment:NORMAL 200-900 PG/ML INDETERMINATE 160-199 PG/ML DEFICIENT < 160 PG/ML Folate 9.0 > or = 4.0 ng/mL [facility] Comment:Reference Values:> o r = 4.0 ng/mL< 4.0 ng/mL suggests folate deficiency Methotrexate, aminopterin and folinic acid(leucovorin) are chemotherapeutic agents whose molecularstructures are similar to folate; therefore, the Architectfolate assay cannot be used for patients using these drugs. 05/20/2023 9:10 AM EDT 05/20/2023 9:10 AM EDT Generic External Data Provider LAB BLOOD ORDERAB LES Final Result Performing Organization Address [facility] de Phone Number [facility] [address] [place] [phone] * TSH with Reflex to Free T4 (05/20/2023 9:10 AM EDT) TSH reflex Free T4 0.78 0.32 - 4.0 uIU/mL [facility] 05/20/2023 9:10 AM EDT 05/20/2023 9:10 AM EDT us Generic External Data Provider LAB BLOOD ORDERAB LES Final Result Performing Organization Address [facility] Co de Phone Number [facility] [address] [place] [phone] * Lipase (05/20/2023 9:10 AM EDT) Lipase 22 8 - 78 U/L [facility] 05/20/2023 9:10 AM EDT 05/20/2023 9:10 AM EDT Generic External Data Provider LAB BLOOD ORDERAB LES Final Result Performing Organization Address [facility] Phone Number [facility] [address] [place] [phone] * C-reactive Protein (05/20/2023 9:10 AM EDT) C Reactive Protein 0.35 < or = 0.50 mg/dL [facility] 05/20/2023 9:10 AM EDT 05/20/2023 9:10 AM EDT Generic External Data Provider LAB BLOOD ORDERAB LES Final Result Performing Organization Address [facility] Co de Phone Number [facility] [address] [place] [phone] * (ABNORMAL) Hepatic Function Panel (05/20/2023 9:10 AM EDT) Bilirubin, Total 0.3 0.0 - 1.0 mg/dL [facility] Bilirubin, Direct 0.1 0.0 - 0.5 mg/dL [facility] Aspartate Amino Transferase 27 5 - 31 U/L [facility] Alanine Aminotransferase 43(H) 0 - 31 U/L [facility] Total Protein 7.8 6.5 - 8.0 g/dL [facility] Albumin Level 4.5 3.5 - 5.0 g/dL [facility] Alkaline Phosphatase 43 39 - 117 U/L [facility] 05/20/2023 9:10 AM EDT 05/20/2023 9:10 AM EDT us Generic External Data Provider LAB BLOOD ORDERAB LES Final Result Performing Organization Address City/State/[facility] Co de Phone Number [facility] [address] [place] [phone] documented in this encounter Visit Diagnoses Not on filedocumented in this encounter Care Teams Legislative Correspondent Relationship Specialty Start Date End Date Marline Lincoln MD [address] [place] [phone] PCP - General Family Medicine 10/21/18 documented as of this encounter
--- OUTSIDE RECORDS SUMMARY | 2024-04-08 10:10 | XMS_ITS | Clinical Summary ---
Author Organization [employer] Address [address] [facility] 7t [place] [address] Care Team Providers Care Accounting Manager Name Role Phone Marline Lincoln MD Primary Care Provide r Allergies No known active allergies Medications PARoxetine (Paxil) 10 MG tablet TAKE 1 TABLET BY MOUTH EVERY DAY 90 tablet 2 07/16/19 24 Active gabapentin (Neurontin) 300 MG capsuleIndicatio ns:Bilateral hip pain,Chronic bilateral low back pain, unspecified whether sciatica present Take 1 capsule (300 mg) by mouth 3 times daily. 90 capsule 11 11/29/19 24 025 Active PARoxetine (Paxil) 10 MG tabletIndication s:Anxiety Take 1 tablet (10 mg) by mouth Once per day. 90 tablet 1 11/29/19 24 Active hydrOXYzine HCl (Atarax) 50 MG tabletIndication s:Primary insomnia TAKE 1 TABLET BY MOUTH EVERYDAY AT BEDTIME 90 tablet 1 11/29/19 24 Active ibuprofen 800 MG tabletIndication s:Chronic pain of both knees TAKE 1 TABLET BY MOUTH THREE TIMES A DAY 90 tablet 2 11/29/19 24 Active famotidine (Pepcid) 20 MG tabletIndication s:Heartburn Take 1 tablet (20 mg) by mouth 2 times daily. 60 tablet 2 11/29/19 24 Active amLODIPine (Norvasc) 5 MG tabletIndication s:Essential hypertension Take 1 tablet (5 mg) by mouth in the morning. 90 tablet 1 11/29/19 24 Active albuterol 108 (90 Base) MCG/ACT inhalerIndicatio ns:Mild intermittent asthma, unspecified whether complicated INHALE 2 PUFFS BY MOUTH EVERY 4 TO 6 HOURS NEEDED 18 g 1 03/23/19 25 Active albuterol 108 (90 Base) MCG/ACT inhalerIndicatio ns:Mild intermittent asthma, unspecified whether complicated TAKE 2 PUFFS BY MOUTH EVERY 4 TO 6 HOURS NEEDED 18 g 1 11/29/19 24 025 Discontinued doxycycline (Vibramycin) 100 MG capsuleIndicatio ns:Sebaceous cyst Take 1 capsule (100 mg) by mouth 2 times daily for 7 days. Take with at least 8 ounces (large glass) of water, do not lie down for 30 minutes after 14 capsule 03/04/19 25 025 Active Problems Problem Noted Date Diagnosed Date Sebaceous cyst 03/04/2024 Diminished vision 03/04/2024 Encounter for screening mammogram for breast can cer 11/29/2023 Atypical nevus 11/29/2023 Anxiety 11/29/2023 Bilateral hip pain 05/15/2023 Assessment & Plan (05/15/2023 11:43 AM EDT): I will increase gabapentin to 300mg TID and refer her to orthopedics as per her request Chronic bilateral low back pain 05/15/2023 Assessment & Plan (05/15/2023 11:43 AM EDT): As above Heartburn 02/28/2023 Assessment & Plan (11/29/2023 11:20 AM EDT): I advise patient to avoid NSAIDs, spicy and acid food, I advise to eat at the same time every day, I advise to elevate the head of the bed and take medications as prescribe Assessment & Plan (02/28/2023 12:12 PM EST): I advise patient to avoid NSAIDs, spicy and acid food, I advise to eat at the same time every day, I advise to elevate the head of the bed and take medications as prescribe Diarrhea 02/28/2023 Menopause syndrome 02/28/2023 Tinea corporis 12/18/2022 Colon cancer screening 12/18/2022 Encounter for preventive health examination 10/19 Assessment & Plan (10/29/2022 12:59 PM EDT): See HPI Numbness and tingling 10/29/2022 Chronic cough 10/29/2022 Bronchitis 10/29/2022 Dizziness 03/09/2022 Essential hypertension 03/09/2022 Assessment & Plan (03/04/2024 12:48 PM EST): Today blood pressure elevated, patient tells me her blood pressure has being stable at home I advise low Na diet, take medication every day and monitor BP at home if its persistently not at goal please reach back Assessment & Plan (11/29/2023 11:20 AM EDT): Stable c/w same interventions Assessment & Plan (05/15/2023 11:43 AM EDT): - Aerobic exercise to reduce BP. Initial goal of 30 min walk 3-5x/week. Increase as tolerated. - low-sodium diet (goal: <2g/day) and heart healthy diet such as DASH to reduce BP and prevent ASCVD. - Home BP monitoring 1-2 x day with goal of <140/90. - Seek immediate medical attention for chest pain, palpitations, SOB, syncope, or sudden changes in mental status. - Do not change or discontinue current prescriptions without first consulting health care provider Assessment & Plan (02/28/2023 12:12 PM EST): I advise not to miss any dose of her medications I advise low Na diet Assessment & Plan (12/18/2022 10:00 AM EDT): - Aerobic exercise to reduce BP. Initial goal of 30 min walk 3-5x/week. Increase as tolerated. - low-sodium diet (goal: <2g/day) and heart healthy diet such as DASH to reduce BP and prevent ASCVD. - Home BP monitoring 1-2 x day with goal of <140/90. - Seek immediate medical attention for chest pain, palpitations, SOB, syncope, or sudden changes in mental status. - Do not change or discontinue current prescriptions without first consulting health care provider Assessment & Plan (10/29/2022 1:00 PM EDT): Patient reports her blod pressure has being high at home ith readings up to 180 systolic - Aerobic exercise to reduce BP. Initial goal of 30 min walk 3-5x/week. Increase as tolerated. - low-sodium diet (goal: <2g/day) and heart healthy diet such as DASH to reduce BP and prevent ASCVD. - Home BP monitoring 1-2 x day with goal of <140/90. - Seek immediate medical attention for chest pain, palpitations, SOB, syncope, or sudden changes in mental status. - Do not change or discontinue current prescriptions without first consulting health care provider Mild intermittent asthma 03/09/2022 Assessment & Plan (11/29/2023 11:20 AM EDT): Stable c/w same interventions Pain of left breast 03/09/2022 Fibromyalgia 11/07/2017 Assessment & Plan (03/04/2024 12:40 PM EST): Patient was educated about multidisciplinary approach for her condition, it was advise cardiovascular exercise, maintain hydration, treat anxiety/depression and take medications as directed Assessment & Plan (12/18/2022 10:01 AM EDT): Patient was educated about multidisciplinary approach for her condition, it was advise cardiovascular exercise, maintain hydration, treat anxiety/depression and take medications as directed I will go up on gabapentin Assessment & Plan (10/29/2022 1:00 PM EDT): Patient was educated about multidisciplinary approach for her condition, it was advise cardiovascular exercise, maintain hydration, treat anxiety/depression and take medications as directed I will try again gabapentin 100mg BID Mood disorder 08/22/2016 Assessment & Plan (03/04/2024 12:45 PM EST): Stable PCOS (polycystic ovarian syndrome) 08/22/2016 Pityriasis versicolor 08/22/2016 Microscopic hematuria 04/30/2012 Insomnia 12/12/2011 Migraine 12/12/2011 Encounters Date Type Department Care Team Description 03/23/2024 Refill [facility] [address] [place] [id number] Marline Lincoln MD Mild intermittent asthma, unspecified whether complicated 03/04/2024 10:00 AM EST Office Visit [facility] [address] [place] [address] Marline Lincoln MD Sebaceous cyst (Primary Dx); Diminished vision; Fibromyalgia; Mood disorder (CMS/HCC); Essential hypertension 03/04/2024 Telephone [facility] [address] [place] [address] Marline Lincoln MD 03/04/2024 Travel from Last 3 Months Immunizations Name Administration Dates Next Due Influenza injectable quadriv alent IIV4 with preservative 11/07/2017,12/31/2014 Moderna Covid-19 Vaccine 12+ 01/20/2021,07/12/19,06/08/2020 Moderna Covid-19 Vaccine 6+ Bivalent 04/23/2022 TD (adult), 2 Lf tetanus tox oid, preservative free, adsorbed 02/18/2005 Tdap 12/31/2014 Social History Tobacco Use Types Packs/Day Years Used Date Smoking Tobacco: Former Cigarettes Passive Smoke Exposure: Past Smokeless Tobacco: Former Tobacco Cessation:Counseling Given: Not Answered Alcohol Use Standard Drinks/Week Comments Never 0 (1 standard drink = 0.6 oz pur e alcohol) Depression Answer Date Recorded Patient Health Questionnaire-9 Score 0 02/28/2023 Patient Health Questionnaire-9 Score 0 02/28/2023 Last PHQ-9: Questionnaire Data Not on file 0 02/28/2023 Housing Stability Answer Date Recorded What is your housing situation today? I have [facility] 12/07/[address] you li ve. Do you have problems with any of the following? None of the above 12/07/2022 Food Insecurity Answer Date Recorded Within the past 12 months, y ou worried that your food would run out before you got money to buy more: Never True 12/07/2022 Within the past 12 months,th e food you bought just didn't last and you didn't have enough money to get more: Never True Transportation Answer Date Recorded In the past 12 months, has l ack of transportation kept you from medical appts, meetings, work or from getting things needed for daily living? No 12/07/2022 Utilities Answer Date Recorded In the past 12 months, has t he electric, gas, oil or water company threatened to shut off services in your home? No 12/07/2022 Depression Answer Date Recorded Patient Health Questionnaire-2 Score 0 02/28/2023 Comments Unknown Sex and Gender Information Value Date Recorded Sex Assigned at Female 12/18/2021 10:17 AM EDT Legal Sex Female 10:17 AM EDT Gender Identity Female 12/18/2021 10:17 AM EDT Sexual Orientation Straight 12/18/2021 10 :17 AM EDT Last Filed Vital Signs Vital Sign Reading Time Taken Comments Blood Pressure 148/98 03/04/2024 10:14 AM EST Pulse 50 03/04/2024 9:54 AM EST Temperature 36.2 ??C (97.2 ??F) 03/04/2024 9:54 AM ES T Respiratory Rate 20 03/04/2024 9:54 AM EST Oxygen Saturation 90% 03/04/2024 9:54 AM EST Inhaled Oxygen Concentration - - Weight 85.4 kg (188 lb 3.2 oz) 03/04/2024 9:54 A M EST Height 172.7 cm (5' 8 ) 03/04/2024 9:54 AM EST Body Mass Index 28.62 03/04/2024 9:54 AM EST Plan of Treatment Upcoming Encounters Date Type Department Care Team (Late st Contact Info) Description 07/06/2024 9:30 AM EDT Office Visit [facility] [address] [place] [address] Ezequiel, Lynn, OD [address] [place] [address] Health Maintenance Due Date Last Done Comments CT Colonography 1973 Colonoscopy 1973 Colorectal Cancer Screening 1973 FIT DNA/Cologuard 1973 FIT 1973 FOBT 1973 HIV Screening 1973 Sigmoidoscopy 1973 Alcohol/Substance Use Screening 1985 Family Planning (PISQ) 1988 Hepatitis C Screening 1991 Hepatitis B Vaccines (1 of 3 - 19+ 3-dose series) 1992 Pneumococcal Vaccine: 50+ Years (1 of 2 - PCV) 1992 Pap Smear 1994 Zoster Vaccines (1 of 2) 2023 COVID-19 Vaccine (5 - season) 2023 04/23/2022, 01/20/2021, 07/11/2020, Additional history exists Influenza Vaccine (#1) 2023 11/07/2017, 2014 Depression Screening 02/29/2024 02/28/2023, 02/28/19 SDOH Screening 05/06/2024 05/07/2023 Mammogram 12/02/2024 12/03/2023, 10/20, 07/21/2021, Additional history exists DTaP/Tdap/Td Vaccines (2 - Td or Tdap) 12/31/2024 12/31/2014, 02/18/2005 Tobacco Screening 03/04/2025 03/04/2024 Cervical Cancer Screening 05/09/2026 HPV/Cotest 05/09/2026 05/09/2021, 04/19, 01/29/2019 Lipid Panel 10/31/2027 10/30/2022, 05/20, 10/17/2020, Additional history exists RSV Patients and Patients Aged 60 years or older (1 - 1-dose 75+ series) 2048 HIB Vaccines Aged Out No longer eligi ble based on patient's age to complete this topic HPV Vaccines Aged Out No longer eligi ble based on patient's age to complete this topic Hepatitis A Vaccines Aged Out No long er eligible based on patient's age to complete this topic IPV Vaccines Aged Out No longer eligi ble based on patient's age to complete this topic Meningococcal Vaccine Aged Out No makenzie pola eligible based on patient's age to complete this topic RSV under 20 months Aged Out No longe r eligible based on patient's age to complete this topic Rotavirus Vaccines Aged Out No longer eligible based on patient's age to complete this topic Procedures Procedure Name Priority Date/Time Associated Diagnosis Comments BI MAMMOGRAM SCREENING TOMOSYNTHESIS BILATERAL Routine 12/03/2023 11:30 AM EDT Encounter for screening mammogram for breast cancer LIPID PANEL, STANDARD Routine 10/30/2022 10:59 AM EDT Encounter for preventive health examination ZZZ HISTORICAL HPV E6/E7 RFLX JULIA 16 18/45 Routine 05/09/2021 3:21 PM EDT from Last 3 Months or Most Recently Relevant to Health Maintenance Results * BI Mammogram Screening Tomosynthesis Bilateral (12/03/2023 11:30 AM EDT) Anatomical Region Laterality Modality Breast Bilateral Mammography 12/03/2023 11:3 0 AM EDT Narrative 12/16/2023 5:26 PM EDT ? [facility] ? [address] ?[place] [address] ? Mammography Report ? Signed with Addenda ? Patient: Jake,Yesjarenia ?MR#: [id number] ?? [id number] ? : 1975 ?Acct:[id number] ? Age/Sex: 48 / F ?ADM Date: 12/02/ ? Loc: HO.MAMMO ? Attending Dr: Marline Edwards MD ? Ordering Physician: Marline Lincoln MD ?Results: ?? 1Negative ? Date of Service: 12/02/ ?Follow Up: 1 Year From Orig ?? inal Mammogram ? Procedure(s): MM tomosynthesis screening BI ?? Accession Number(s): [id number] ? cc: Marline Lincoln MD ?ADDENDUM ? ADDENDUM #1 ? ADDENDUM:Due to a software issue related to the original report, this ?? case has been reviewed again and the original findings and ?? recommendations remain the same. ? Electronically signed by: ??Yaa Benton DO ??12/20/2023 10:14 AM EDT ?? RP ? Addendum Dictated By: ?Yaa Benton, DO ? Addendum Signed By: ? <Electronically signed by Yaa Benton, DO in OV> ? 12/20/23 1014 ?? Addendum Cosigned By: ? DD/ ? TD/TT: 12/03/23 ? EXAMINATION: ?? MM SCREENING DIGITAL BREAST TOMOSYNTHESIS, BILATERAL ? CLINICAL INFORMATION: ? Screening. Asymptomatic. ? COMPARISON: ?? Mammography: Comparison is made with available priors ? TECHNIQUE: ?? Digital breast mammography with tomosynthesis is performed in both the ?? craniocaudal and mediolateral oblique views along with computer-aided ?? detection (CAD). ? FINDINGS: ?? There are scattered areas of fibroglandular density (ACR BI-RADS breast ?? composition Category b). ? There are no significant masses, abnormal calcifications, or other ?? abnormalities. ? MM/MM tomosynthesis screening BI ?? IMPRESSION: ?? No mammographic evidence of malignancy. ? ASSESSMENT: ? BI-RADS BI-RADS 1 - Negative ? RECOMMENDATION: ?? Routine annual mammography screening. ? 1 year F/U ? This examination should not preclude the clinical evaluation of a ?? suspicious palpable abnormality. ? This patient's information was entered into a reminder system with a ?? target due date for their next mammogram. ? Electronically signed by: ??Yaa Benton DO ??12/16/2023 05:22 PM EDT ?? RP ? Dictated By: ?Yaa Benton DO ? Signed By: ?<Electronically signed by Yaa Benton, DO in OV> ? 12/16/23 1722 ? DD/ 1130 ? TD/TT: 12/03/23 1157 ? Observation Nurse: ? Procedure Note Audie, Image - 12/20/2023 [facility] [address] [place], [place] [address] Mammography Report Signed with Addenda Patient: Marva JosephMR#: [id number] : 1975Acct:[id number] Age/Sex: 48 / FADM Date: 12/03/23 Loc: HO.MAMMO Attending Dr: Marline Edwards MD Ordering Physician: Marline Lincoln MDResults: 1Negative Date of Service: 12/03/23Follow Up: 1 Year From Orig inal Mammogram Procedure(s): MM tomosynthesis screening BI Accession Number(s): [id number] cc: Marline Lincoln MD ADDENDUM ADDENDUM #1 ADDENDUM:Due to a software issue related to the original report, this case has been reviewed again and the original findings and recommendations remain the same. Electronically signed by: Yaa Benton DO 12/20/2023 10:14 AM EDT Addendum Dictated By: Yaa Benton DO Addendum Signed By: <Electronically signed by DO Venancio in OV> 12/20/23 1014 Addendum Cosigned By: DD/ TD/TT: 12/03/23 EXAMINATION: MM SCREENING DIGITAL BREAST TOMOSYNTHESIS, BILATERAL CLINICAL INFORMATION: Screening. Asymptomatic. COMPARISON: Mammography: Comparison is made with available priors TECHNIQUE: Digital breast mammography with tomosynthesis is performed in both the craniocaudal and mediolateral oblique views along with computer-aided detection (CAD). FINDINGS: There are scattered areas of fibroglandular density (ACR BI-RADS breast composition Category b). There are no significant masses, abnormal calcifications, or other abnormalities. MM/MM tomosynthesis screening BI IMPRESSION: No mammographic evidence of malignancy. ASSESSMENT: BI-RADS BI-RADS 1 - Negative RECOMMENDATION: Routine annual mammography screening. 1 year F/U This examination should not preclude the clinical evaluation of a suspicious palpable abnormality. This patient's information was entered into a reminder system with a target due date for their next mammogram. Electronically signed by: Yaa Benton DO 12/16/2023 05:22 PM EDT RP Dictated By: Yaa Benton DO Signed By: <Electronically signed by Yaa Benton DO in OV> 12/16/23 1722 DD/ 1130 TD/TT: 12/03/23 1157 Observation Nurse: us Marline Edwards MD IMG BI PROCEDURES Timothy tucker Result - Final * (ABNORMAL) Lipid Panel, Standard (10/30/2022 10:59 AM EDT) Triglycerides 153(H) <150 mg/dL [facility] Comment:Desirable Triglyceri de: less than 150 mg/dLBorderline High Triglyceride 150-199 mg/dLHigh Triglyceride: 200-499 mg/dLVery High Triglyceride: greater than or equal to 5OO mg/dL Cholesterol 229(H) <200 mg/dL [facility] Comment:Desirable Cholestero l: less than 200 mg/dLBorderline High Cholesterol: 200-239 mg/dLHigh Cholesterol: greater than 239 mg/dL LDL Cholesterol Calculated 145(H) <100 mg/dL [facility] Comment:Desirable LDL: less than 100 mg/dLNear Optimal/Above Optimal LDL: 110- 129 mg/dLBorderline High LDL: 130-159 mg/dLHigh LDL: 160-189 mg/dLVery High LDL: greater than or equal to 190 mg/dL HDL Cholesterol 54 >40 mg/dL [facility] Comment:Desirable HDL: great er than 40 mg/dL Note: This HDL assay may give artificially low results in patients with liver disease. Blood Venous blood specimen / Unknown 10/30/2022 10:59 AM EDT 10/30/2022 1:32 PM EDT us Marline Edwards MD LAB BLOOD ORDERABLES Final Result [facility] [address] [place] [phone] * HPV E6/E7 RFLX JULIA 16 18/45 (05/09/2021 3:21 PM EDT) HPV mRNA E6/E7 rflx Not Detected Not Detected [facility] Comment: Methodology: Sales Counselor-Mediated Amplification This assay detects E6/E7 viral messenger RNA (mRNA) from 14 high-risk HPV types (16,18,31,33,35,39,45,51,52,56,58,59,66,68). The analytical performance characteristics of this assay have been determined by [employer]. The modifications have not been cleared or approved by the FDA. This assay has been validated pursuant to the CLIA regulations and is used for clinical purposes. For additional information, please refer to http://education.MakersKit/faq/BUP035q7 (This link if provided for information/ educational purposes only.) THIS TEST WAS PERFORMED AT: [employer] [address] [place] [address] [address] [place], [place] ??[phone] RADHA MILAN MD 05/09/2021 3:21 PM EDT Elkin Spain MD HISTORICAL/NON ORDERABLE LABS Fi nal Result [facility] [address] from Last 3 Months or Most Recently Relevant to Health Maintenance Insurance [facility] STANDARD [employer] MEDICARE REPLACEMENT Care Teams Accounting Manager Relationship Specialty Start Date End Date Marline Lincoln MD [address] [place] [phone] PCP - General Family Medicine 10/21/18
--- OUTSIDE RECORDS SUMMARY | 2024-04-08 10:10 | XMS_ITS | Encounter Summary ---
Author Organization [employer] Address [address] [facility] [address] [place] [address] Care Team Providers Care Foundation Assistant Name Role Phone Marline Lincoln MD Primary Care Provide r Reason for Visit * Reason Onset Date Comments Appointment Request 12/25/2023 Encounter Details Date Type Department Care Team ([facility] Contact Info) Description 12/25/2023 Telephone [facility] [address] [place], [place] [phone] Marline Lincoln MD [address] [place] [address] Appointment Request Social History Tobacco Use Types Packs/Day Years Used Date Smoking Tobacco: Former Cigarettes Passive Smoke Exposure: Past Smokeless Tobacco: Former Depression Answer Date Recorded Patient Health Questionnaire-9 [...] encounter Miscellaneous Notes * Telephone Encounter - Umm Gayle - 12/25/2023 9:58 AM EST Tc from pt requesting to book derm appt. Pt was referral 11/29/23. documented in this encounter Plan of Treatment Upcoming Encounters Date Type Department Care Team (Late st Contact Info) Description 07/06/2024 9:30 AM EDT Office Visit [facility] [address] [place] [address] Ezequiel, Lynn, OD [address] [place] [address] documented as of this encounter Visit Diagnoses Not on filedocumented in this encounter Additional Health Concerns Assessment Noted Time PHQ-9 Depression Total Score: 0 02/28/19 10:07 AM EST documented as of this encounter Care Teams Foundation Assistant Relationship Specialty Start Date End Date Marline Lincoln MD [address] [place] [address] PCP - General Family Medicine 10/21/18 documented as of this encounter
--- OUTSIDE RECORDS SUMMARY | 2024-04-08 10:10 | XMS_ITS | Encounter Summary ---
Author Organization [email or web address] Address [address] [address] [address] [place] [address] Care Team Providers Care Clinical Program Consultant Name Role Phone Marlien Lincoln MD Primary Care Provide r Reason for Visit * Reason Comments Med Refill Encounter Details Date Type Department Care Team ([facility] st Contact Info) Description 03/23/2024 Refill [facility] [address] [place] [address] Marline Lincoln MD [address] [place] [address] Mild intermittent asthma, unspecified whether complicated Social History Tobacco Use Types Packs/Day Years Used Date Smoking Tobacco: Former Cigarettes Passive Smoke Exposure: Past Smokeless Tobacco: Former Alcohol Use Standard Drinks/Week Comments Never 0 [...] 9:30 AM EDT Office Visit [facility] [address] [place] [address] EzequielLynn fields, OD [address] [place] [address] documented as of this encounter Visit Diagnoses Diagnosis Mild intermittent asthma, unspecified whether complicated documented in this encounter Additional Health Concerns Assessment Noted Time PHQ-9 Depression Total Score: 0 02/28/19 24 10:07 AM EST documented as of this encounter Care Teams Clinical Program Consultant Relationship Specialty Start Date End Date Marline Lincoln MD [address] [place], [place] [phone] PCP - General Family Medicine 10/21/18 documented as of this encounter
== END 2024-04-08 10:04 | disposition home or self-care (01) ==
PROVIDERS: PCP Internal Medicine; Visit Provider Surgery
DX: L72.0 Epidermal cyst (principal)
CPT/HCPCS: 99203

== ENCOUNTER → 2024-04-08 09:47 | Outpatient (BNVA) | payer OTHER, SELFPAY | PROVIDERS: PCP Internal Medicine; Visit Provider Surgery ==

== ENCOUNTER 2024-05-13 10:51 | Outpatient (REF) | payer OTHER, SELFPAY ==
--- OUTSIDE RECORDS SUMMARY | 2024-05-13 13:01 | XMS_ITS | Encounter Summary ---
Author Organization [employer] Address [address] [place] [address] [address] [place] [address] Care Team Providers Care Yarn Mercerizer Operator Helper Name Role Phone Marline Lincoln MD Primary Care Provide r Encounter Details Date Type Department Care Team (Late st Contact Info) Description 03/09/2022 Orders Only [facility] [address] [place] [address] Debby Thornton MD [address] [place] [address] Chronic pain of both knees (Primary Dx) [...] Care Team (Late st Contact Info) Description 05/22/2024 2:30 PM EDT Office Visit [facility] [address] [place] [address] Eagle Hollis MD [address] [place] [address] 07/10/2024 3:30 PM EDT Office Visit [facility] OPT[facility] [address] [place] [address] Lynn Nieves, OD [address] [place] [address] documented as of this encounter Visit Diagnoses Diagnosis Chronic pain of both knees- Primary documented in this encounter Care Teams Yarn Mercerizer Operator Helper Relationship Specialty Start Date End Date Marline Lincoln MD [address] [place] [address] PCP - General Family Medicine 10/21/18 documented as of this encounter
--- OUTSIDE RECORDS SUMMARY | 2024-05-13 13:01 | XMS_ITS | Clinical Summary ---
Author Organization [employer] Address 75 [facility] 7t [place] [address] Care Team Providers Care Senior Mobile Web Developer Name Role Phone Marline Lincoln MD Primary Care Provide r Allergies No known active allergies Medications PARoxetine (Paxil) 10 MG tablet TAKE 1 TABLET BY MOUTH EVERY DAY 90 tablet 2 4 Active gabapentin (Neurontin) 300 MG capsuleIndication s:Bilateral hip pain,Chronic bilateral low back pain, unspecified whether sciatica present Take 1 capsule (300 mg) by mouth 3 times daily. 90 capsule 11 4 11/29/19 25 Active PARoxetine (Paxil) 10 MG tabletIndications :Anxiety Take 1 tablet (10 mg) by mouth Once per day. 90 tablet 1 4 Active hydrOXYzine HCl (Atarax) 50 MG tabletIndications :Primary insomnia TAKE 1 TABLET BY MOUTH EVERYDAY AT BEDTIME 90 tablet 1 4 Active ibuprofen 800 MG tabletIndications :Chronic pain of both knees TAKE 1 TABLET BY MOUTH THREE TIMES A DAY 90 tablet 2 4 Active famotidine (Pepcid) 20 MG tabletIndications :Heartburn Take 1 tablet (20 mg) by mouth 2 times daily. 60 tablet 2 4 Active amLODIPine (Norvasc) 5 MG tabletIndications :Essential hypertension Take 1 tablet (5 mg) by mouth in the morning. 90 tablet 1 4 Active albuterol 108 (90 Base) MCG/ACT inhalerIndication s:Mild intermittent asthma, unspecified whether complicated INHALE 2 PUFFS BY MOUTH EVERY 4 TO 6 HOURS NEEDED 18 g 1 5 Active Active Problems Problem Noted Date Diagnosed Date [...] Type Department Care Team Description 03/23/2024 Refill [facility] [address] [place] [address] Marline Lincoln MD Mild intermittent asthma, unspecified whether complicated 03/04/2024 10:00 AM EST Office Visit [facility] [address] [place], [place] [phone] Marline Lincoln MD Sebaceous cyst (Primary Dx); Diminished vision; Fibromyalgia; Mood disorder (CMS/HCC); Essential hypertension 03/04/2024 Telephone [facility] [address] [place] [address] Marline Lincoln MD 03/04/2024 Travel from Last 3 Months Immunizations Name Administration Dates Next Due Influenza injectable quadriv alent IIV4 with preservative 11/07/2017,12/31/2014 Moderna Covid-19 Vaccine 12+ 01/20/2021,07/12/19 21,06/08/2020 Moderna Covid-19 Vaccine 6+ Bivalent 04/23/2022 TD [...] Description 05/22/2024 2:30 PM EDT Office Visit [facility] [address] [place] [address] Eagle Hollis MD [address] [place] [address] 07/10/2024 3:30 PM EDT Office Visit [facility] OPTOMET[facility] [address] [place] [address] Lynn Nieves, OD [address] [place] [address] Health Maintenance Due Date Last Done Comments [...] of 2) 2023 COVID-19 Vaccine (5 - 2024-25 season) 2023 04/23/2022, 01/20/2021, 07/11/2020, Additional history [...] EDT Narrative 12/16/2023 5:26 PM EDT ? [facility] ? [address] ?[place], [place] [address] ? Mammography Report ? Signed with Addenda ? Patient: Jake,Marva ?MR#: [id number] ?? [id number] ? : 1975 ?Acct:[id number] ? Age/Sex: 48 / F ?ADM Date: 12/03/23 ? Loc: HO.MAMMO ? Attending Dr: Marline Edwards MD ? Ordering Physician: Marline Lincoln MD ?Results: ?? 1Negative ? Date of Service: 12/02/ ?Follow Up: 1 Year From Orig ?? inal Mammogram ? Procedure(s): MM tomosynthesis screening BI ?? Accession Number(s): [id number] ? cc: Marline Lincoln MD ?ADDENDUM ? [...] by Yaa Benton, DO in OV> ? 12/19/24 1014 ?? Addendum Cosigned By: ? DD/ [...] ??Yaa Benton DO ??12/16/2023 05:22 PM EDT ? Dictated By: ?Yaa Benton DO ? Signed By: ?<Electronically signed by Yaa Benton DO in OV> ? 12/16/23 1722 ? DD/ 1130 ? TD/TT: 12/03/23 1157 ? Offset Second Press Operator: ? Procedure Note Audie, Angelica - 12/20/2023 [facility] [address] [place] [address] Dr. [place], [place] [address] Mammography Report Signed with Addenda Patient: Marva Joseph#: [id number] : 1975Acct:[id number] Age/Sex: 48 / FADM Date: 12/03/23 Loc: HO.MAMMO Attending Dr: Marline Edwards MD Ordering Physician: Marline Lincoln MDResults: 1Negative Date of Service: 12/03/23Follow Up: 1 Year From Orig ina Mammogram Procedure(s): MM tomosynthesis screening BI Accession Number(s): [id number] cc: Marline Lincoln MD ADDENDUM ADDENDUM #1 ADDENDUM:Due to a software issue related to the original report, this case has been reviewed again and the original findings and recommendations remain the same. Electronically signed by: Yaa Benton DO 12/20/2023 10:14 AM EDT RP Addendum Dictated By: Yaa Benton DO Addendum [...] DO Signed By: <Electronically signed by Yaa Benton, DO in OV> 12/16/23 1722 DD/ 1130 TD/TT: 12/03/23 1157 Offset Second Press Operator: us Marline Edwards MD IMG BI PROCEDURES Timothy tucker Result - Final * (ABNORMAL) Lipid Panel, Standard (10/30/2022 10:59 AM EDT) Triglycerides 153(H) <150 mg/dL [facility] Comment:Desirable Triglyceri de: less than 150 mg/dLBorderline High Triglyceride 150-199 mg/dLHigh Triglyceride: 200-499 mg/dLVery High Triglyceride: greater than or equal to 5OO mg/dL Cholesterol 229(H) <200 mg/dL [facility] Comment:Desirable Cholestero l: less than 200 mg/dLBorderline High Cholesterol: 200-239 mg/dLHigh Cholesterol: greater than 239 mg/dL LDL Cholesterol Calculated 145(H) <100 mg/dL [facility] Comment:Desirable LDL: less than 100 mg/dLNear Optimal/Above Optimal LDL: 110- 129 mg/dLBorderline High LDL: 130-159 mg/dLHigh LDL: 160-189 mg/dLVery High LDL: greater than or equal to 190 mg/dL HDL Cholesterol 54 >40 mg/dL [facility] Comment:Desirable HDL: great er than 40 mg/dL Note: This HDL assay may give artificially low results in patients with liver disease. Blood Venous blood specimen / Unknown 10/30/2022 10:59 AM EDT 10/30/2022 1:32 PM EDT us Marline Edwards MD LAB BLOOD ORDERABLES Final Result [facility] [address] [place] [phone] * HPV E6/E7 RFLX JULIA 16 18/45 (05/09/2021 3:21 PM EDT) HPV mRNA E6/E7 rflx Not Detected Not Detected [facility] Comment: Methodology: Automotive Collision Repair Instructor-Mediated Amplification This assay detects E6/E7 viral messenger RNA (mRNA) from 14 high-risk HPV types (16,18,31,33,35,39,45,51,52,56,58,59,66,68). The analytical performance characteristics of this assay have been determined by [employer]. The modifications have not been cleared or approved by the FDA. This assay has been validated pursuant to the CLIA regulations and is used for clinical purposes. For additional information, please refer to http://education.[employer]/faq/PMO478q1 (This link if provided for information/ educational purposes only.) THIS TEST WAS PERFORMED AT: [employer] [address] [place] [address] [address] [place], [place] ??[phone] RADHA MILAN MD 05/09/2021 3:21 PM EDT Elkin Spain MD HISTORICAL/NON ORDERABLE LABS Fi nal Result [facility] [address] from Last 3 Months or Most Recently Relevant to Health Maintenance Insurance [facility] [employer] MEDICARE REPLACEMENT Care Teams Senior Mobile Web Developer Relationship Specialty Start Date End Date Marline Lincoln MD [address] [place] [phone] PCP - General Family Medicine 10/21/18
--- OUTSIDE RECORDS SUMMARY | 2024-05-13 13:01 | XMS_ITS | Encounter Summary ---
Author Organization [employer] Address [address] [facility] 7t [place] [address] Care Team Providers Care Health Equipment Servicer Name Role Phone Marline Lincoln MD Primary Care Provide r Reason for Visit * Reason Onset Date Comments Appointment Request 12/25/2023 Encounter Details Date Type Department Care Team ([facility] Contact Info) Description 12/25/2023 Telephone [facility] [address] [place], [place] [phone] Marline Lincoln MD [address] [place] [address] Appointment Request Social History Tobacco Use Types [...] 05/22/2024 2:30 PM EDT Office Visit [facility] [address] [place] [address] Eagle Hollis MD [address] [place] [address] 07/10/2024 3:30 PM EDT Office Visit [facility] OPTOMETRY [address] [place] [address] Ezequiel, Lynn, OD [address] [place] [address] documented as of this encounter Visit Diagnoses Not on filedocumented in this encounter Additional Health Concerns Assessment Noted Time PHQ-9 Depression Total Score: 0 02/28/19 10:07 AM EST documented as of this encounter Care Teams Health Equipment Servicer Relationship Specialty Start Date End Date Marline Lincoln MD [address] [place] [address] PCP - General Family Medicine 10/21/18 documented as of this encounter
--- OUTSIDE RECORDS SUMMARY | 2024-05-13 13:01 | XMS_ITS | Encounter Summary ---
Author Organization [employer] Address [address] [facility] 7t [place] [address] Care Team Providers Care Manager Flight Operations Name Role Phone Marline Lincoln MD Primary Care Provide r Reason for Visit * Reason Onset Date Comments r/s appt 11/05/2022 Encounter Details Date Type Department Care Team ([facility] Contact Info) Description 11/05/2022 Telephone [facility] [address] [place] [address] Marline Lincoln MD [address] [place] [address] r/s appt Social History Tobacco Use Types [...] Department Care Team (Late Contact Info) Description 05/22/2024 2:30 PM EDT Office Visit [facility] [address] [place] [address] Eagle Hollis MD [address] [place] [address] 07/10/2024 3:30 PM EDT Office Visit [facility] OPTOMETRY [address] [place] [address] Lynn Nieves, BALWINDER [address] [place] [address] documented as of this encounter Visit Diagnoses Not on filedocumented in this encounter Care Teams Manager Flight Operations Relationship Specialty Start Date End Date Marlien Lincoln MD [address] [place] [address] PCP - General Family Medicine 10/21/18 documented as of this encounter
--- OUTSIDE RECORDS SUMMARY | 2024-05-13 13:01 | XMS_ITS | Encounter Summary ---
Author Organization [employer] Address [address] [place] [address] 7 [place] [address] Care Team Providers Care Machine Stripper Name Role Phone Marline Lincoln MD Primary Care Provide r Reason for Visit * Reason Comments Med Refill Encounter Details Date Type Department Care Team (Late st Contact Info) Description 10/17/2022 Refill [facility] [address] [place] [address] [facility] [address] [place] [address] Social History Tobacco Use Types Packs/Day Years [...] Description 05/22/2024 2:30 PM EDT Office Visit [facility] [address] [place] [address] Eagle Hollis MD [address] [place] [address] 07/10/2024 3:30 PM EDT Office Visit [facility] OPTOMETRY [address] [place] [address] Lynn Nieves, OD [address] [place] [address] documented as of this encounter Visit Diagnoses Not on filedocumented in this encounter Care Teams Machine Stripper Relationship Specialty Start Date End Date Marline Lincoln MD [address] [place] [address] PCP - General Family Medicine 10/21/18 documented as of this encounter
--- OUTSIDE RECORDS SUMMARY | 2024-05-13 13:01 | XMS_ITS | Encounter Summary ---
Author Organization [employer] Address 75 [facility] 7 [place] [address] Care Team Providers Care County Court Judge Name Role Phone Marline Lincoln MD Primary Care Provide r Encounter Details Date Type Department Care Team (Late st Contact Info) Description 10/12/2022 Orders Only [facility]EDS [address] [place] [address] Marquita Reed LPN Social History Tobacco Use [...] Visit [facility]INE [address] [place] [address] Eagle Hollis MD [address] [place] [address] 07/10/2024 3:30 PM EDT Office Visit [facility] OPTOMETRY [address] [place], [place] [phone] Lynn Nieves, OD [address] [place] [address] documented as of this encounter Procedures Procedure [...] EDT) Vitamin D, 25-OH, D2 <4 ng/mL [facility] Comment:This test was develo ped and its analytical performancecharacteristics have been determined by [employer] [place], [place]. It hasnot been cleared or approved by the U.S. Food and DrugAdministration. This assay has been validated pursuantto the CLIA regulations and is used for clinicalpurposes.THIS TEST WAS PERFORMED AT:[employer]/[facility] [id number] [place] [address]LFDXEZYJEFFERY GLOVER MD,PHD Vitamin D, 25-OH, D3 9 ng/mL [facility] Comment:This test was develo ped and its analytical performancecharacteristics have been determined by [employer] [place], [place]. It hasnot been cleared or approved by the U.S. Food and DrugAdministration. This assay has been validated pursuantto the CLIA regulations and is used for clinicalpurposes. Vitamin D, 25-OH, Total 9(A) 30 - 100 ng/mL [facility] Comment:Vitamin D, 25-Hydrox y reports [...] = 30 ng/mL.For additional information, please refer tohttp://education.[employer]/faq/IOT533(This link is being provided for informational/educational purposes only.) 05/20/2023 9:10 AM EDT 05/20/2023 9:10 AM EDT us Generic External Data Provider LAB BLOOD ORDERAB LES Final Result Performing Organization Address [facility]/ZIP Co de Phone Number [facility] [address] [place] [phone] * Vitamin B12/Folate, Serum Panel (05/20/2023 9:10 AM EDT) Vitamin B12 480 200 - 900 pg/mL [facility] Comment:NORMAL 200-900 PG/M L INDETERMINATE 160-199 PG/ML DEFICIENT < 160 PG/ML Folate 9.0 > or = 4.0 ng/mL [facility] Comment:Reference Values:> o r = 4.0 ng/mL< 4.0 ng/mL suggests folate deficiency Methotrexate, aminopterin and folinic acid(leucovorin) are chemotherapeutic agents whose molecularstructures are similar to folate; therefore, the Architectfolate assay cannot be used for patients using these drugs. 05/20/2023 9:10 AM EDT 05/20/2023 9:10 AM EDT us Generic External Data Provider LAB BLOOD ORDERAB LES Final Result Performing Organization Address [facility]/ZIP Co de Phone Number [facility] [address] [place] [phone] * TSH with Reflex to Free T4 (05/20/2023 9:10 AM EDT) TSH reflex Free T4 0.78 0.32 - 4.0 uIU/mL [facility] 05/20/2023 9:10 AM EDT 05/20/2023 9:10 AM EDT us Generic External Data Provider LAB BLOOD ORDERAB LES Final Result Performing Organization Address City/[facility]/ZIP Co de Phone Number [facility] [address] [place] [phone] * Lipase (05/20/2023 9:10 AM EDT) Pathologist [facility] Lipase 22 8 - 78 U/L [facility] 05/20/2023 9:10 AM EDT 05/20/2023 9:10 AM EDT us Generic External Data Provider LAB BLOOD ORDERAB LES Final Result Performing Organization Address [facility] Co de Phone Number [facility] [address] [place] [phone] * C-reactive Protein (05/20/2023 9:10 AM EDT) Pathologist [facility] C Reactive Protein 0.35 < or = 0.50 mg/dL [facility] 05/20/2023 9:10 AM EDT 05/20/2023 9:10 AM EDT Generic External Data Provider LAB BLOOD ORDERAB LES Final Result Performing Organization Address [facility] Co de Phone Number [facility] [address] [place] [phone] * (ABNORMAL) Hepatic Function Panel (05/20/2023 9:10 AM EDT) Bilirubin, Total 0.3 0.0 - 1.0 mg/dL [facility] Bilirubin, Direct 0.1 0.0 - 0.5 mg/dL [facility] Aspartate Amino Transferase 27 5 - 31 U/L [facility] Alanine Aminotransferase 43(H) 0 - 31 U/L [facility] Total Protein 7.8 6.5 - 8.0 g/dL [facility] Albumin Level 4.5 3.5 - 5.0 g/dL [facility] Alkaline Phosphatase 43 39 - 117 U/L [facility] 05/20/2023 9:10 AM EDT 05/20/2023 9:10 AM EDT us Generic External Data Provider LAB BLOOD ORDERAB LES Final Result Performing Organization Address City/State/[facility] Co de Phone Number [facility] [address] [place] [phone] documented in this encounter Visit Diagnoses Not on filedocumented in this encounter Care Teams County Court Judge Relationship Specialty Start Date End Date Marline Lincoln MD [address] [place] [phone] PCP - General Family Medicine 10/21/18 documented as of this encounter
--- OUTSIDE RECORDS SUMMARY | 2024-05-13 13:01 | XMS_ITS | Encounter Summary ---
Author Organization [employer] Address [address] [place] [address] 7 [place] [address] Care Team Providers Care Grocery Worker Name Role Phone Marline Lincoln MD Primary Care Provide r Reason for Visit * Reason Comments Med Refill Encounter Details Date Type Department Care Team (Late Contact Info) Description 11/21/2022 Refill [facility] [address] [place] [address] Marline Lincoln MD [address] [place] [address] Essential hypertension Social History Tobacco Use Types [...] Description 05/22/2024 2:30 PM EDT Office Visit [facility] [address] [place] [address] Eagle Hollis MD [address] [place] [address] 07/10/2024 3:30 PM EDT Office Visit [facility] OPTOMETRY [address] [place] [address] Lynn Nieves, OD [address] [place] [address] documented as of this encounter Visit Diagnoses Diagnosis Essential hypertension Unspecified essential hypertension documented in this encounter Care Teams Grocery Worker Relationship Specialty Start Date End Date Marline Lincoln MD [address] [place] [address] PCP - General Family Medicine 10/21/18 documented as of this encounter
== END 2024-05-13 10:52 | disposition home or self-care (01) ==
LOC: HO.HHCL 10:51
PROVIDERS: Nurse Practitioner Family; Visit Provider Orthopaedic Surgery
DX: E55.9 Vitamin D deficiency, unspecified (principal)
CPT/HCPCS: 36415; 82306